=== PATIENT | male | born 1940 | race Caucasian/White ===

== ENCOUNTER 2019-03-25 10:31 | Emergency (ER) | payer MEDICARE ==
[2019-03-25] MEDS: Aspirin 81 MG Tab.Chew PO ONE (10:41)
--- NOTE | 2019-03-25 11:03 | EDM.PDOC ---
ED HPI GENERAL MEDICAL PROBLEM - General Chief Complaint: Chest Pain Stated Complaint: CHEST PAIN Time Seen by Provider: 03/25/19 10:45 Source of Information: Reports: Patient, Family History Limitations: Reports: No Limitations - History of Present Illness INITIAL COMMENTS - FREE TEXT/NARRATIVE: Bahman is a 79 year old male who presents ambulatory to the ED via private vehicle with c/o left sided chest pain radiating to his left arm. He reports the pain has been ongoing for the past week. Does report this morning he was sweaty and his son recommended he be evaluated in the ED. He described the pain as achy. Reports it seems to be worse after he eats food. Has not found anything that relieves the pain. Has taken ibuprofen. He does report that a few nights ago he was nauseated, but otherwise has not been. Has not been ill recently. Does have chronic shortness of breath with his asthma, for which he uses Advair. Reports no worsening of his shortness of breath. He does not doctor regularly. Does report history of asthma. Reports he has never had his cholesterol checked, other that at a farm show one time in the past. Son repots this was 25+ years ago. He does report his BP is usually elevated when he donates blood. Denies any smoking, drug use, or ETOH use. He is a purvis/rancher. Onset Date: 03/18/19 Duration: Constant, Intermittent Location: Reports: Chest, Upper Extremity, Left, Radiates to Quality: Reports: Ache Severity: Moderate Improves with: Reports: None Worsens with: Reports: Eating Associated Symptoms: Reports: Chest Pain, Diaphoresis. Denies: Confusion, Cough , cough w sputum, Fever/Chills, Headaches, Loss of Appetite, Malaise, Nausea/ Vomiting, Rash, Seizure, Shortness of Breath, Syncope, Weakness Left Chest Pain Score (Numeric/FACES): 5 - Related Data Allergies Allergy/AdvReac Type Severity Reaction Status Date / Time No Known Allergies Allergy Verified 03/25/19 10:32 Home Meds: Home Meds Fluticasone/Salmeterol [Advair 250-50 Diskus] 1 puff INH DAILY 10/26/15 [History ] Past Medical History Cardiovascular History: Reports: None Respiratory History: Reports: Asthma Social & Family History - Family History Family Medical History: Noncontributory - Tobacco Use Smoking Status *Q: Never Smoker Second Hand Smoke Exposure: No - Caffeine Use Caffeine Use: Reports: Coffee - Alcohol Use Alcohol Use History: No - Recreational Drug Use Recreational Drug Use: No - Living Situation & Occupation Living situation: Reports: Occupation: Employed Social History Comment: [employer]anc[employer] ED ROS GENERAL - Review of Systems Review Of Systems: See Below Constitutional: Reports: Diaphoresis. Denies: Fever, Chills, Malaise, Weakness , Fatigue, Decreased Appetite HEENT: Reports: No Symptoms Respiratory: Reports: Shortness of Breath. Denies: Wheezing, Pleuritic Chest Pain, Cough, Sputum, Hemoptysis Cardiovascular: Reports: Chest Pain, Blood Pressure Problem, Dyspnea on Exertion. Denies: Edema, Lightheadedness, Orthopnea, Palpitations, Syncope Endocrine: Reports: No Symptoms GI/Abdominal: Denies: Abdominal Pain, Diarrhea, Decreased Appetite, Hematochezia , Melena, Nausea, Vomiting : Denies: Dysuria, Frequency, Urgency Musculoskeletal: Reports: Arm Pain (left) Skin: Reports: Diaphoresis Neurological: Denies: Confusion, Dizziness, Headache, Numbness, Syncope, Tremors , Weakness Psychiatric: Denies: Anxiety ED EXAM, GENERAL - Physical Exam Exam: See Below Exam Limited By: No Limitations General Appearance: Alert, WD/WN, No Apparent Distress Eye Exam: Bilateral Eye: EOMI, Normal Fundi, Normal Inspection, PERRL Ears: Normal External Exam, Normal Canal, Hearing Grossly Normal, Normal TMs Throat/Mouth: Normal Lips, No Airway Compromise, Other (excessive tissue on hard palate) Head: Atraumatic, Normocephalic Neck: Normal Inspection, Supple, Non-Tender, Full Range of Motion Respiratory/Chest: No Respiratory Distress, Lungs Clear, Normal Breath Sounds, No Accessory Muscle Use, Chest Non-Tender Cardiovascular: Normal Peripheral Pulses, Regular Rate, Rhythm, No Edema, No JVD , No Murmur Peripheral Pulses: 2+: Dorsalis Pedis (L), Dorsalis Pedis (R) GI/Abdominal: Normal Bowel Sounds, Soft, Non-Tender, No Organomegaly, No Distention, No Abnormal Bruit, No Mass Back Exam: Normal Inspection, Full Range of Motion. No: CVA Tenderness (L), CVA Tenderness (R) Extremities: Normal Inspection, Normal Range of Motion, Non-Tender, Normal Capillary Refill, No Pedal Edema Neurological: Alert, Oriented, CN II-XII Intact, Normal Cognition, Normal Gait, Normal Reflexes, No Motor/Sensory Deficits Psychiatric: Normal Affect, Normal Mood Skin Exam: Warm, Dry, Intact, Normal Color, No Rash. No: Diaphoretic Lymphatic: No Adenopathy Course - Vital Signs Last Recorded V/S: Last Vital Signs Temp 96.7 F 03/25/19 10:42 Pulse 66 03/25/19 12:11 Resp 16 03/25/19 12:11 BP 153/81 H 03/25/19 16:24 Pulse Ox 95 03/25/19 12:11 - Orders/Labs/Meds Orders: Active Orders 24 hr Category Date Time Status EKG Documentation Completion [RC] STAT Care 03/25/19 13:45 Active Chest 2V [CR] Stat Exams 03/25/19 10:34 Taken EKG 12 Lead [EK] Routine Ther 03/25/19 13:30 Stop Req Labs: Laboratory Tests 03/25/19 03/25/19 03/25/19 Range/Units 10:34 10:34 10:34 WBC 6.2 (5.0-10.0) 10^3/uL RBC 5.49 (4.50-6.00) 10^6/uL Hgb 16.2 (14.0-18.0) g/dL Hct 47.2 (40.0-54.0) % MCV 86.0 (82.0-94.0) fL MCH 29.5 (27.0-32.0) pg MCHC 34.3 (33.0-38.0) g/dL RDW Coeff of Olivia 12.9 (11.0-15.0) % Plt Count 197 (150-400) 10^3/uL Neut % (Auto) 75.0 (35-85) % Lymph % (Auto) 14.4 (10-55) % Crawford % (Auto) 9.1 (0-16) % Eos % (Auto) 1.3 (0-5) % Baso % (Auto) 0.2 (0-3) % Neut # (Auto) 4.67 (1.80-7.00) 10^3/uL Lymph # (Auto) 0.90 L (1.00-4.80) 10^3/uL Crawford # (Auto) 0.57 (0.00-0.80) 10^3/uL Eos # (Auto) 0.08 (0.00-0.45) 10^3/uL Baso # (Auto) 0.01 10^3/uL PT 10.7 (9.7-12.3) SEC INR 1.04 (0.92-1.18) APTT 28.5 (23.2-32.3) SEC Sodium 139 (136-145) mEq/L Potassium 4.4 (3.5-5.0) mEq/L Chloride 101 (98-106) mEq/L Carbon Dioxide 26 (21-32) mmol/L BUN 24 H (7-18) mg/dL Creatinine 1.1 (0.7-1.3) mg/dL Est Cr Clr Drug Dosing 52.68 mL/min Estimated GFR (MDRD) > 60 (>=60) mL/min Glucose 125 H (75-99) mg/dL Calcium 9.2 (8.4-10.1) mg/dL Lactate Dehydrogenase 220 H (100-190) U/L Creatine Kinase 114 (35-232) U/L Troponin I 0.072 H (0.00-0.06) ng/mL 03/25/19 Range/Units 13:30 WBC (5.0-10.0) 10^3/uL RBC (4.50-6.00) 10^6/uL Hgb (14.0-18.0) g/dL Hct (40.0-54.0) % MCV (82.0-94.0) fL MCH (27.0-32.0) pg MCHC (33.0-38.0) g/dL RDW Coeff of Olivia (11.0-15.0) % Plt Count (150-400) 10^3/uL Neut % (Auto) (35-85) % Lymph % (Auto) (10-55) % Crawford % (Auto) (0-16) % Eos % (Auto) (0-5) % Baso % (Auto) (0-3) % Neut # (Auto) (1.80-7.00) 10^3/uL Lymph # (Auto) (1.00-4.80) 10^3/uL Crawford # (Auto) (0.00-0.80) 10^3/uL Eos # (Auto) (0.00-0.45) 10^3/uL Baso # (Auto) 10^3/uL PT (9.7-12.3) SEC INR (0.92-1.18) APTT (23.2-32.3) SEC Sodium (136-145) mEq/L Potassium (3.5-5.0) mEq/L Chloride (98-106) mEq/L Carbon Dioxide (21-32) mmol/L BUN (7-18) mg/dL Creatinine (0.7-1.3) mg/dL Est Cr Clr Drug Dosing mL/min Estimated GFR (MDRD) (>=60) mL/min Glucose (75-99) mg/dL Calcium (8.4-10.1) mg/dL Lactate Dehydrogenase 226 H (100-190) U/L Creatine Kinase 139 (35-232) U/L Troponin I 0.317 H (0.00-0.06) ng/mL Meds: Medications Discontinued Medications Generic Name Dose Route Start Last Admin Trade Name Freq PRN Reason Stop Dose Admin Aspirin 324 mg 03/25/19 10:34 03/25/19 10:41 Aspirin PO 03/25/19 10:35 324 mg ONETIME ONE Administration Losartan Potassium 50 mg 03/25/19 10:59 03/25/19 11:10 Cozaar PO 03/25/19 11:00 50 mg STAT STA Administration - Re-Assessments/Exams Free Text/Narrative Re-Assessment/Exam: 03/25/19 12:07 Consulted with [facility] block mechanic Dr. Adkins who recommends monitoring with serial cardiac enzymes. 03/25/19 14:[address] Adkins again regarding increase in troponin. Troponin increased from 0.072 to 0.317. He reports patient can be transferred there for serial troponins or he feels we can monitor locally as well. Discussed with patient who wishes to monitor locally rather than transfer. He currently denies any chest pain. BP has improved. Will admit to observation for serial cardiac enzymes. Patient and family agreeable. 03/25/19 15:30 Daughter voices concern regarding keeping him local vs. transfer. She wishes to discuss with her siblings and will let us know if they wish to transfer. 03/25/19 16:41 Daughter would like me to consult with patient's son, who is a PA. Discussed case with patient's son who requests transfer to higher level of care. Consulted again with [facility]. Awaiting callback. 03/25/19 17:08 Call back from [facility]. Consulted with hospitalist Dr. Sanchez who accepted patient for transfer. Patient will be transferred via [facility] crew to . Discussed risks vs. benefits of transfer with patient and family. Risks of transfer include worsening of condition, , and MVA. Benefits of transfer include higher level of care, cardiology consultation. Risks of nontransfer include worsening of condition, , and no cardiology consultation. Benefits of nontransfer include convenience. Patient verbalized understanding and is agreeable with transfer. Departure - Departure Time of Disposition: 17:18 Disposition: DC/Tfer to [facility] Reason for Transfer *Q: Other (cardiology consultation) Condition: Good Clinical Impression: Unstable angina Hypertension Qualifiers: Hypertension type: essential hypertension Qualified Code(s): I10 - Essential ( primary) hypertension Referrals: Darshan Rob PA-C [Primary Care Provider] - Forms: ED Department Discharge - Problem List & Annotations (1) Unstable angina SNOMED Code(s): 6761107, 617264191 Code(s): I20.0 - UNSTABLE ANGINA Status: Acute Current Visit: Yes (2) Hypertension SNOMED Code(s): 40994687 Code(s): I10 - ESSENTIAL (PRIMARY) HYPERTENSION Status: Acute Current Visit: Yes Qualifiers: Hypertension type: essential hypertension Qualified Code(s): I10 - Essential (primary) hypertension - My Orders Last 24 Hours: My Active Orders 03/25/19 10:34 Chest 2V [CR] Stat 03/25/19 13:30 EKG 12 Lead [EK] Routine 03/25/19 13:45 EKG Documentation Completion [RC] STAT - Assessment/Plan Last 24 Hours: My Active Orders 03/25/19 10:34 Chest 2V [CR] Stat 03/25/19 13:30 EKG 12 Lead [EK] Routine 03/25/19 13:45 EKG Documentation Completion [RC] STAT Assessment:: Unstable Angina Hypertension Plan: Patient will be transferred to via [facility] with accepting physician Dr. Sanchez.
[2019-03-25 11:07] LABS: CHLORIDE,CL 101 mEq/L (98-106); SODIUM,NA 139 mEq/L (136-145)
[2019-03-25] MEDS: Losartan 25 MG Tab PO STA (11:10)
[2019-03-25 12:12] VITALS: PULSE 66
[2019-03-25 16:25] VITALS: BP 153/81
== END 2019-03-25 18:25 ==
LOC: CC.ED 10:31
DX: I20.0 Unstable angina (principal); I10 Essential (primary) hypertension; J45.909 Unspecified asthma, uncomplicated; Z79.51 Long term (current) use of inhaled steroids
CPT/HCPCS: 36415; 71046; 80048; 82550; 83615; 84484; 85025; 85610; 85730; 93005; 99285-25; A9270-GY

== ENCOUNTER 2023-01-23 09:35 | Emergency (ER) | payer MEDICARE, OTHER ==
[2023-01-23 10:07] LABS: HEMATOCRIT 40.3 % (42.0-52.0); HEMOGLOBIN 13.6 g/dL (14.0-18.0); IMMATURE GRAN ABSOLUTE AUTO 0.01 10^3/uL (0.00-0.49); IMMATURE GRAN PERCENT AUTO 0.2 % (0.0-4.9); LYMPHOCYTES ABSOLUTE AUTO 0.69 10^3/uL (0.60-5.00); LYMPHOCYTES PERCENT AUTO 15.9 % (24-44); MEAN CORPUSCULAR HEMOGLOBIN 29.1 pg (27.0-32.0); MEAN CORPUSCULAR HGB CONC 33.7 g/dL (32.0-36.0); MEAN CORPUSCULAR VOLUME 86.3 fL (83.0-97.0); MONOCYTES ABSOLUTE AUTO 0.51 10^3/uL (0.00-1.50); MONOCYTES PERCENT AUTO 11.8 % (0-10); NEUTROPHILS ABSOLUTE AUTO 3.12 x10^3/uL (1.80-8.00); NEUTROPHILS PERCENT AUTO 72.1 % (41-71); PLATELET COUNT,PLT 174 10^3/uL (150-400); RED BLOOD CELL COUNT 4.67 x10^6/uL (4.50-6.00); WHITE BLOOD CELL COUNT,WBC 4.3 10^3/uL (4.0-11.0)
[2023-01-23 10:21] LABS: ALANINE AMINOTRANSFERASE,ALT 43 U/L (12-78); ALKALINE PHOSPHATASE 68 U/L (46-116); ASPARTATE AMNIOTRANSFERASE,AST 38 U/L (15-37); BILIRUBIN TOTAL 0.7 mg/dL (0.0-1.0); BLOOD UREA NITROGEN,BUN 23 mg/dL (7-18); C-REACTIVE PROTEIN 9.61 mg/dL (<=0.30); CALCIUM 8.3 mg/dL (8.4-10.1); CARBON DIOXIDE,CO2 29 mmol/L (21-32); CHLORIDE,CL 102 mEq/L (98-106); CREATININE 1.1 mg/dL (0.7-1.3); GLUCOSE RANDOM 119 mg/dL (75-99); PROTEIN TOTAL,TP 6.8 g/dL (6.4-8.2); SODIUM,NA 140 mEq/L (136-145)
[2023-01-23 10:23] LABS: ESTIMATED GFR 67 mL/min (>=60)
[2023-01-23 18:42] VITALS: BP 139/59; PULSE 63
== END 2023-01-23 10:52 | disposition home or self-care (01) ==
LOC: CC.ED 09:35
DX: U07.1 COVID-19 (principal); Z79.899 Other long term (current) drug therapy
CPT/HCPCS: 36415; 71046; 80053; 83735; 85025; 86140; 87804; 99284; U0002